=== PATIENT | male | born 1990 | race Caucasian/White ===

== ENCOUNTER 2018-06-15 16:23 | Emergency (ER) | payer BC ==
[2018-06-15] MEDS ORDERED: Morphine 4 MG/ML VIAL ONE (17:14)
[2018-06-15] MEDS ORDERED: Ondansetron PF 4 MG/2 ML Vial ONE (17:14)
--- NOTE | 2018-06-15 18:45 | RAD ---
PORTABLE CHEST: HISTORY: Chest pain. FINDINGS: Heart size and mediastinum are within normal limits. Lungs are clear of infiltrates. No bony findin gs. IMPRESSION: No active intrathoracic disease. POS: [facility]
--- NOTE | 2018-06-15 19:54 | ULT ---
GALLBLADDER ULTRASOUND: HISTORY: Right upper quadrant pain. CT examination done earlier today. TECHNIQUE: Real-time imaging of the right upper quadrant was performed. FINDINGS: the gallbladder has been removed. The patient reported a cholecystectomy four months ago. There is a small, complex fluid collection in the gallbladder fossa, corresponding to the CT finding, measurin g approximately 2 x 3 cm in size. The common duct is in the 4 mm range. The liver parenchyma shows no focal findings. It measures 16 cm in length. The pancreas is obscured. The right kidney is norm al in size and not obstructed. IMPRESSION: Complex fluid collection in the gallbladder fossa, measuring 2 x 3 cm. The technologist reports a ne gative ultrasound [place] sign. POS: [facility]
--- NOTE | 2018-06-20 15:19 | EKG ---
Test Reason : ABD PAIN Blood Pressure : / mmHG Vent. Rate : 061 BPM Atrial Rate : 061 BPM P-R Int : 126 ms QRS Dur : 090 ms QT Int : 408 ms P-R-T Axes : 020 052 030 degrees QTc Int : 410 ms Poor data quality, interpretation may be adversely affected Sinus rhythm with marked sinus arrhythmia Otherwise normal ECG Confirmed by MACI RIDDLE M.D. ([id number]), food editor MURIEL DIMAS ([id number]) on 06/20/2018 3:18:55 PM Referred By: GUSTAVO Confirmed By:MACI RIDDLE M.D.
== END 2018-06-15 19:52 | disposition home or self-care (01) ==
LOC: ERS 16:23
DX: R10.13 Epigastric pain (principal); R79.89 Other specified abnormal findings of blood chemistry; F17.220 Nicotine dependence, chewing tobacco, uncomplicated
CPT/HCPCS: 71045; 76705; 93005; 96361; 96374; 96375; J2270; J2405